=== PATIENT | female | born 1955 | race Caucasian/White ===

== ENCOUNTER 2021-06-23 12:23 | Emergency (ER) | payer MEDICARE, SELFPAY ==
[2021-06-23 12:33] VITALS: BP 141/67; PULSE 77; RESP 15; TEMP 36.6; O2SAT 100; BMI 29.7
--- NOTE | 2021-06-23 12:40 | DI.US.S_ITS ---
PROCEDURE: US PERIPH VENOUS LOW EXTREM LT INDICATIONS: recent knee surgery,left calf pain TECHNIQUE: Real-time imaging, as well as color and pulse Doppler interrogation, were performed of the lower extremity deep veins from the inguinal ligament to the popliteal fossa. COMPARISON: None. FINDINGS: The common femoral, femoral and popliteal veins are normally compressible, and free of intraluminal thrombus. Color and pulse Doppler demonstrate normal phasic intraluminal flow. There is normal augmentation response to distal compression maneuver. IMPRESSION: Negative for deep venous thrombosis. Dictated by: Rinku Burks M.D. on 06/23/2021 at 12:48 Approved by: Rinku Burks M.D. on 06/23/2021 at 12:48
--- NOTE | 2021-06-23 13:52 | ED.EXTPRO ---
HPI - Extremity Problem <Arnel Gillespie PA-C - Last Filed: 06/23/21 15:54> General Chief complaint: Extremity Problem,Nontraumatic Stated complaint: pt suspects blood clot Time Seen by Provider: 06/23/21 12:58 Source: patient Mode of arrival: Ambulatory History of Present Illness HPI Narrative: Fazal presents today with chief complaint of left calf bruising and swelling that started 2 days ago. She reports that she had total left knee replacement by Dr. Alea aburto in his [place] 1 week ago. She has had 2 treatments of physical therapy since this occurred. Today 1 of her physical therapist recommend that she come in to get evaluated for possible blood clot because of the bruising and the discomfort. April Urrutia denies any previous history of DVT or PE. She is not taking any blood thinners. She reports being otherwise healthy with no significant past medical problems. She denies any fevers, discharge, redness around her incision site, or any other acute concerns or complaints at this time. Related Data Allergies Allergy/AdvReac Type Severity Reaction Status Date / Time cefadroxil Allergy Verified 06/23/21 12:36 codeine Allergy Verified 06/23/21 12:36 Review of Systems <Arnel Gillespie PA-C - Last Filed: 06/23/21 15:54> Review of Systems Narrative: As per HPI Patient History <Arnel Gillespie PA-C - Last Filed: 06/23/21 15:54> Social History Smoking Status: Current every day smoker Smoking Status: Current every day smoker alcohol intake frequency: holidays/special occasions only Substance Use Type: does not use Exam <KOFFI Ureña Last Filed: 06/23/21 15:54> Narrative Exam Narrative: Exam Narrative: Const General: cooperative, healthy appearing, comfortable, no acute distress, well developed and well groomed Nutritional Appearance: average body habitus Orientation: alert and oriented x3 HENMT Head: normal to inspection and atraumatic Ears: hearing grossly normal bilaterally Nose: external nose normal and nares normal Face and sinus: normal facial exam Neck Neck: normal visual inspection and supple Resp Effort & Inspection: normal respiratory effort, able to speak in complete sentences, no audible wheezes, not labored, no nasal flaring and no respiratory distress Neuro General: alert, oriented x3, tone normal and moves all extremities Cognition: normal cognition Speech: speech normal Gait: Slight limping gait Extremities Lower extremities exposed. Surgical bandage noted on left anterior knee with no significant drainage, surrounding redness, or warmth. She has bruising to the medial posterior left calf with minimal swelling. Slightly tender to the touch. No pretibial edema, pedal pulses equal bilaterally. Psych Appearance: grossly normal and well kempt Mental Status: mental status grossly normal Speech and Movement: speech and movement normal Mood: congruent mood Affect: normal affect Initial Vital Signs Initial Vital Signs: Vital Signs Temperature 97.8 F 06/23/21 12:33 Pulse Rate 77 06/23/21 12:33 Respiratory Rate 15 06/23/21 12:33 Blood Pressure 141/67 H 06/23/21 12:33 Pulse Oximetry 100 06/23/21 12:33 <Myrtle Prater MD - Last Filed: 06/25/21 02:33> Initial Vital Signs Initial Vital Signs: Vital Signs Temperature 97.8 F 06/23/21 12:33 Pulse Rate 77 06/23/21 12:33 Respiratory Rate 15 06/23/21 12:33 Blood Pressure 141/67 H 06/23/21 12:33 Pulse Oximetry 100 06/23/21 12:33 Course <Arnel Gillespie PA-C - Last Filed: 06/23/21 15:54> Orders Ordered: ED Orders 06/23/21 12:40 perip venous low extrem lt Stat Vital Signs Vital signs: Vital Signs - 8 hr 06/23/21 12:33 Temperature 97.8 F Pulse Rate 77 Respiratory Rate 15 Blood Pressure 141/67 H Pulse Oximetry 100 <Myrtle Prater MD - Last Filed: 06/25/21 02:33> Orders Ordered: ED Orders 06/23/21 12:40 US perip venous low extrem lt Stat Vital Signs Vital signs: Vital Signs - 8 hr 06/23/21 12:33 Temperature 97.8 F Pulse Rate 77 Respiratory Rate 15 Blood Pressure 141/67 H Pulse Oximetry 100 MDM - Extremity (Nontraumatic) <Arnel Gillespie PA-C - Last Filed: 06/23/21 15:54> MDM Narrative Medical decision making narrative: Differential diagnosis includes DVT, postsurgical pain, hematoma. Patient has a reassuring ultrasound and physical exam. No evidence of DVT noted. There is no evidence of infection on examination. I suspect that her discomfort is due to the bruising post surgery and from the increased activity that she has had with her physical therapy. Return precautions were discussed. Patient verbalizes understanding and agrees to plan and has no further concerns at this time. Thank you A [id number] system was used with the dictation of this note. Please disregard any spelling or grammatical errors. Discharge Plan Departure Patient Disposition: Home Clinical Impression: Left leg pain, Postoperative ecchymosis Activity Restrictions/Additional Instructions: Physical examination and ultrasound are reassuring for no DVT. I suspect that this is just residual bruising and inflammation from the surgery and the physical therapy that you have been doing. Recommend continuing with her surgeons plan and with physical therapy as normal. Return precautions include significant worsening pain, shortness of breath, chest tightness or any other acute concerns or complaints. Thank you Arnel Gillespie PA-C
== END 2021-06-23 14:08 | disposition home or self-care (01) ==
PROVIDERS: Emergency Provider Physician Assistant
DX: L76.22 Postprocedural hemorrhage of skin and subcutaneous tissue following other procedure (principal); M79.605 Pain in left leg
CPT/HCPCS: 93971; 99281; 99283